=== PATIENT | female | born 1995 | race Caucasian/White ===

== ENCOUNTER 2024-07-20 18:23 | Outpatient (CLI) | payer OTHER, SELFPAY ==
[2024-07-23 14:52] LABS: HPV Source Cervix; HPV, High Risk by TMA Not Detected
== END 2024-07-20 18:24 | disposition home or self-care (01) ==
PROVIDERS: Visit Provider Registered Nurse
DX: Z01.419 Encounter for gynecological examination (general) (routine) without abnormal findings (principal); Z12.4 Encounter for screening for malignant neoplasm of cervix; Z13.6 Encounter for screening for cardiovascular disorders
CPT/HCPCS: 80061; 87624; 87625; 88141; 88142

== ENCOUNTER 2025-02-11 11:26 | Outpatient (CLI) | payer BC, OTHER, SELFPAY | END 2025-02-11 11:27 | disposition home or self-care (01) | LOC: NFLDREF 11:27 | PROVIDERS: Visit Provider Registered Nurse | DX: Z13.29 Encounter for screening for other suspected endocrine disorder (principal) | CPT/HCPCS: 84443 ==